=== PATIENT | male | born 1950 | race Caucasian/White ===

== ENCOUNTER 2019-02-22 21:10 | Emergency (ER) | payer MEDICARE | END 2019-02-22 22:23 | disposition home or self-care (01) | LOC: ERS 21:10 | DX: T18.128A Food in esophagus causing other injury, initial encounter (principal) | CPT/HCPCS: 99283 ==

== ENCOUNTER 2020-07-08 11:19 | Outpatient (CLI) | payer MEDICARE, OTHER ==
[2020-07-08] MEDS ORDERED: Iopamidol 370 76% 100 ML VIAL ONE (11:53)
--- NOTE | 2020-07-08 11:53 | CT ---
CT Abdomen Pelvis W Con History: Abdominal pain. Chronic diarrhea Comparison: None. Findings: Lung bases are clear. No pericardial effusion. The liver, gallbladder, spleen, pancreas, adrenal glands are normal. No hydronephrosis. Moderate diverticular disease sigmoid colon without active current inflammation. Low-grade hepatic flexure colonic wall thickening. Loss of normal haustrations distal sigmoid colon e xtending to the rectosigmoid junction. Small left fat containing indirect inguinal hernia. No free intraperitoneal gas or fluid. No retroperitoneal periaortic adenopathy. No acute osseous abnormality. Celiac trunk and superior mesenteric arteries are patent. Impression: 1. Findings of low-grade hepatic flexure colitis. 2. Lack of normal haustrations of the sigmoid colon suggesting chronic bouts of prior colitis/inflamm atory bowel disease. 3. Moderate diverticular disease of the descending colon/sigmoid colon junction without active inflam mation. 4. Small fat-containing umbilical hernia. 5. Small fat-containing left indirect inguinal hernia.
== END 2020-07-08 11:20 | disposition home or self-care (01) ==
LOC: BICCT 11:19
PROVIDERS: ATTEND Physician Assistant Medical
DX: R19.7 Diarrhea, unspecified (principal); K52.89 Other specified noninfective gastroenteritis and colitis; K57.30 Diverticulosis of large intestine without perforation or abscess without bleeding; K42.9 Umbilical hernia without obstruction or gangrene; K40.90 Unilateral inguinal hernia, without obstruction or gangrene, not specified as recurrent
CPT/HCPCS: 74177; 82565; Q9967